=== PATIENT | female | born 1970 | race Caucasian/White ===

== ENCOUNTER 2017-11-18 13:24 | Emergency (ER) | payer MEDICAID ==
[~2017-11-18] VITALS: Ht 167.6 cm; Wt 75.0 kg
[2017-11-18 14:03] VITALS: BP 161/105
== END 2017-11-18 17:50 | disposition home or self-care (01) ==
LOC: ER 13:24
DX: G25.2 Other specified forms of tremor (principal); R42 Dizziness and giddiness; Z88.5 Allergy status to narcotic agent
CPT/HCPCS: 99284